=== PATIENT | female | born 1950 | race Caucasian/White ===

== ENCOUNTER 2017-09-10 10:24 | Emergency (ER) | payer MEDICARE, OTHER ==
[2017-09-10] MEDS ORDERED: NS 0.9% 1000 ML* 1,000 ML IV SCH (11:00)
[2017-09-10 11:35] LABS: ABS Basophils 0.1 10^3/ul (0-0.2); ABS Eosinophils 0 10^3/ul (0-0.6); ABS Lymphocytes 2.1 10^3/ul (1.0-4.8); ABS Monocytes 0.5 10^3/ul (0-0.8); ABS Neutrophils 4.3 10^3/ul (1.5-7.7); ABS Nucleated RBC 0 10^3/ul; Eosinophil % 0.2 % (0-6); Hematocrit 37 % (35-47); Hemoglobin 12.3 g/dl (12.0-16.0); Lymphocyte % 30.1 % (25-47); Mean Corpuscular HGB Conc 33 g/dl (31-36); Mean Corpuscular Hemoglobin 29 pg (27-31); Mean Corpuscular Volume 87 fL (80-97); Mean Platelet Volume 8 um3 (7.4-10.4); Nucleated Red Blood Cells % 0; Platelet Count 295 10^3/ul (150-450); Red Blood Count 4.27 10^6/ul (4.0-5.4); Red Cell Distribution Width 15 % (10.5-15)
[2017-09-10 11:52] LABS: INR 0.94 (0.77-1.02)
--- NOTE | 2017-09-10 11:53 | RAD ---
HISTORY: Epigastric pain COMPARISONS: September 26, 2012 VIEWS: 1: frontal portable view of the chest at 11:04 AM FINDINGS: LINES AND TUBES: None. CARDIOMEDIASTINAL SILHOUETTE: The cardiomediastinal silhouette is normal for portable technique. PLEURA: The costophrenic angles are sharp. No pleural abnormalities are noted. LUNG PARENCHYMA: The lungs are clear. ABDOMEN: The upper abdomen is clear. There is no subphrenic gas. Surgical clips are noted at the GE junction. BONES AND SOFT TISSUES: No bone or soft tissue abnormalities are noted. IMPRESSION: NO ACTIVE CARDIOPULMONARY DISEASE.
[2017-09-10 11:57] LABS: EGFR Non-African American 66.5 (>60)
[2017-09-10 13:10] VITALS: BP 115/80
--- NOTE | 2017-09-10 16:38 | ED ---
Dizziness - HPI Summary HPI Summary: Patient is an otherwise healthy 67-year-old female with a history of GERD who presents to the ED with chief complaint of dizziness after she took her nitroglycerin for the GERD symptoms this morning. She states she accidentally took too because they were stuck together and immediately felt dizzy, but denied any chest pain. She wanted to make sure nothing was going to get worse, and came to the ED. See note below: Pt states that she had one of her "episodes " of GERD and as instructed by her PMD she took nitroglycerin. Pt states that the bottle of nitroglycerin was new, and seh took 2 tabs instead of 1. She became dizzy and diaphoretic approx 5 minutes after taking the nitroglycerin. By the time EMS arrived pt states her sx's had "all but subsided". At thist time pt has no complaints of dizziness, chest or epigastric pain. She is alert and oriented x 4. She denies any fevers, sweats, chills. Denies any dizziness at baseline. She never has a history of such. She takes a nitroglycerin through her PCP which was found to be helpful for her GERD symptoms. The GERD symptoms present as an esophageal spasm. She has these episodes about 3 times a year and keeps the nitroglycerin on hand in case. She also takes a blood pressure medication lisinopril daily. Her blood pressure is usually normal and is controlled on these medications. - History Of Current Complaint Chief Complaint: EDAbdPain Stated Complaint: CHEST PAIN Time Seen by Provider: 09/10/17 12:26 Hx Obtained From: Patient Onset/Duration: Resolved Timing: Constant Severity Initially: Mild Severity Currently: Mild Character: Lightheaded, Weak, Dizzy Aggravating Factor(s): Nothing Alleviating Factor(s): Rest, Lying Down Associated Signs And Symptoms: Positive: Nausea - Risk Factors Cardiac Risk Factors: Hypertension CVA Risk Factor: Negative - Allergies/Home Medications Allergies/Adverse Reactions: Allergies Allergy/AdvReac Type Severity Reaction Status Date / Time Tetracyclines Allergy Mild Hives Verified 09/10/17 11:18 Home Medications: Home Medications Levothyroxine TAB* [Synthroid TAB*] 88 mcg PO DAILY 09/10/17 [History Confirmed 09/10/17] Lisinopril TAB* [Prinivil TAB*] 5 mg PO DAILY 09/10/17 [History Confirmed ] Psyllium Husk [Sm Fiber] 1,200 mg PO QAM 09/10/17 [History Confirmed 09/10/17] Vitamin B Complex CAP* [B Complex CAP*] 1 cap PO DAILY 09/10/17 [History Confirmed 09/10/17] PMH/Surg Hx/FS Hx/Imm Hx Previously Healthy: Yes Endocrine/Hematology History: Reports: Hx Thyroid Disease - Hypothyroidism Denies: Hx Anticoagulant Therapy - Was on Plavix briefly, Hx Diabetes Cardiovascular History: Reports: Hx Hypertension Denies: Hx Congestive Heart Failure, Hx Pacemaker/ICD Respiratory History: Denies: Hx Chronic Obstructive Pulmonary Disease (COPD) Comment Only: Hx Asthma - Distant past GI History: Reports: Hx Diverticulosis, Hx Gastroesophageal Reflux Disease, Hx Irritable Bowel, Hx Ulcer History: Denies: Hx Renal Disease Musculoskeletal History: Denies: Hx Osteoporosis Sensory History: Reports: Hx Contacts or Glasses Opthamlomology History: Reports: Hx Contacts or Glasses Neurological History: Denies: Hx Dementia, Hx Seizures Psychiatric History: Reports: Hx Depression Denies: Hx Substance Abuse - Surgical History Surgery Procedure, Year, and Place: , hysterectomy, failed repair of hiatal hernit, tonsillectomy, extra bone removed from left foot, cosmetic surgery eyes and face lift (5 years ago). - Immunization History Date of Tetanus Vaccine: <10 yrs Date of Influenza Vaccine: Fall 2011 Immunizations Up to Date: Yes Infectious Disease History: No Infectious Disease History: Denies: Hx Hepatitis, Hx Human Immunodeficiency Virus (HIV), Traveled Outside the [place] in Last 30 Days - Social History Occupation: Unemployed Lives: With Family Alcohol Use: Rare Hx Substance Use: No Substance Use Type: Reports: None Smoking Status (MU): Never Smoked Tobacco Review of Systems Constitutional: Negative Negative: Fever, Chills, Fatigue, Skin Diaphoresis Eyes: Negative Cardiovascular: Negative Genitourinary: Negative Positive: no symptoms reported, see HPI Musculoskeletal: Negative Neurological: Negative All Other Systems Reviewed And Are Negative: Yes Physical Exam Triage Information Reviewed: Yes Vital Signs On Initial Exam: Initial Vitals Temp Pulse Resp BP Pulse Ox 97.8 F 52 16 121/69 98 09/10/17 10:26 09/10/17 10:26 09/10/17 10:26 09/10/17 10:26 09/10/17 10:26 Vital Signs Reviewed: Yes Appearance: Positive: Well-Appearing, Well-Nourished Skin: Positive: Warm, Skin Color Reflects Adequate Perfusion Head/Face: Positive: Normal Head/Face Inspection Eyes: Positive: EOMI, VALENTIN, Conjunctiva Clear Neck: Positive: Supple, No Lymphadenopathy Respiratory/Lung Sounds: Positive: Clear to Auscultation, Breath Sounds Present Cardiovascular: Positive: Normal, RRR, Pulses are Symmetrical in both Upper and Lower Extremities Musculoskeletal: Positive: Normal, Strength/ROM Intact Neurological: Positive: Speech Normal Psychiatric: Positive: Normal AVPU Assessment: Alert Diagnostics - Vital Signs Vital Signs Temp Pulse Resp BP Pulse Ox 09/10/17 13:10 97.8 F 75 18 115/80 98 09/10/17 13:09 98 F 75 18 115/80 98 09/10/17 10:26 97.8 F 52 16 121/69 98 - Laboratory Lab Results: Lab Results 09/10/17 09/10/17 09/10/17 Range/Units 11:14 11:14 11:14 WBC 7.0 (3.5-10.8) 10^3/ul RBC 4.27 (4.0-5.4) 10^6/ul Hgb 12.3 (12.0-16.0) g/dl Hct 37 (35-47) % MCV 87 (80-97) fL MCH 29 (27-31) pg MCHC 33 (31-36) g/dl RDW 15 (10.5-15) % Plt Count 295 (150-450) 10^3/ul MPV 8 (7.4-10.4) um3 Neut % (Auto) 61.4 (38-83) % Lymph % (Auto) 30.1 (25-47) % Kershaw % (Auto) 7.6 H (0-7) % Eos % (Auto) 0.2 (0-6) % Baso % (Auto) 0.7 (0-2) % Absolute Neuts (auto) 4.3 (1.5-7.7) 10^3/ul Absolute Lymphs (auto) 2.1 (1.0-4.8) 10^3/ul Absolute Monos (auto) 0.5 (0-0.8) 10^3/ul Absolute Eos (auto) 0 (0-0.6) 10^3/ul Absolute Basos (auto) 0.1 (0-0.2) 10^3/ul Absolute Nucleated RBC 0 10^3/ul Nucleated RBC % 0 INR (Anticoag Therapy) 0.94 (0.77-1.02) APTT 27.3 (26.0-36.3) seconds Sodium (133-145) mmol/L Potassium (3.5-5.0) mmol/L Chloride (101-111) mmol/L Carbon Dioxide (22-32) mmol/L Anion Gap (2-11) mmol/L BUN (6-24) mg/dL Creatinine (0.51-0.95) mg/dL Est GFR ( Amer) (>60) Est GFR (Non-Af Amer) (>60) BUN/Creatinine Ratio (8-20) Glucose (70-100) mg/dL Lactic Acid (0.5-2.0) mmol/L Calcium (8.6-10.3) mg/dL Magnesium (1.9-2.7) mg/dL Total Bilirubin (0.2-1.0) mg/dL AST (13-39) U/L ALT (7-52) U/L Alkaline Phosphatase (34-104) U/L Troponin I (<0.04) ng/mL C-Reactive Protein (< 5.00) mg/L B-Natriuretic Peptide 46 ( - 100) pg/mL Total Protein (6.4-8.9) g/dL Albumin (3.2-5.2) g/dL Globulin (2-4) g/dL Albumin/Globulin Ratio (1-3) Lipase (11.0-82.0) U/L TSH (0.34-5.60) mcIU/mL 09/10/17 09/10/17 Range/Units 11:14 11:14 WBC (3.5-10.8) 10^3/ul RBC (4.0-5.4) 10^6/ul Hgb (12.0-16.0) g/dl Hct (35-47) % MCV (80-97) fL MCH (27-31) pg MCHC (31-36) g/dl RDW (10.5-15) % Plt Count (150-450) 10^3/ul MPV (7.4-10.4) um3 Neut % (Auto) (38-83) % Lymph % (Auto) (25-47) % Kershaw % (Auto) (0-7) % Eos % (Auto) (0-6) % Baso % (Auto) (0-2) % Absolute Neuts (auto) (1.5-7.7) 10^3/ul Absolute Lymphs (auto) (1.0-4.8) 10^3/ul Absolute Monos (auto) (0-0.8) 10^3/ul Absolute Eos (auto) (0-0.6) 10^3/ul Absolute Basos (auto) (0-0.2) 10^3/ul Absolute Nucleated RBC 10^3/ul Nucleated RBC % INR (Anticoag Therapy) (0.77-1.02) APTT (26.0-36.3) seconds Sodium 139 (133-145) mmol/L Potassium 4.2 (3.5-5.0) mmol/L Chloride 105 (101-111) mmol/L Carbon Dioxide 27 (22-32) mmol/L Anion Gap 7 (2-11) mmol/L BUN 21 (6-24) mg/dL Creatinine 0.85 (0.51-0.95) mg/dL Est GFR ( Amer) 85.5 (>60) Est GFR (Non-Af Amer) 66.5 (>60) BUN/Creatinine Ratio 24.7 H (8-20) Glucose 100 (70-100) mg/dL Lactic Acid 1.1 (0.5-2.0) mmol/L Calcium 9.3 (8.6-10.3) mg/dL Magnesium 2.0 (1.9-2.7) mg/dL Total Bilirubin 0.40 (0.2-1.0) mg/dL AST 23 (13-39) U/L ALT 22 (7-52) U/L Alkaline Phosphatase 64 (34-104) U/L Troponin I 0.00 (<0.04) ng/mL C-Reactive Protein 8.37 H (< 5.00) mg/L B-Natriuretic Peptide ( - 100) pg/mL Total Protein 6.7 (6.4-8.9) g/dL Albumin 4.2 (3.2-5.2) g/dL Globulin 2.5 (2-4) g/dL Albumin/Globulin Ratio 1.7 (1-3) Lipase 31 (11.0-82.0) U/L TSH 2.08 (0.34-5.60) mcIU/mL Result Diagrams: 09/10/17 11:14 09/10/17 11:14 Lab Statement: Any lab studies that have been ordered have been reviewed, and results considered in the medical decision making process. Dizzy Course/Dx - Course Course Of Treatment: During the course of treatment, BP is immediately taken and normal at 121/68. She states this is normal for her. The nitroglycerin were taken approximately 1 hour prior to arrival. She denies any abdominal pain , or any other symptoms at this time. She does not feel dizzy. She is ambulating well, denies any neuro symptoms. I have discussed that this is a manifestation of the nitroglycerin, and she agrees. She reiterates that she just wanted to get checked out to make sure nothing else was going on. Labs were obtained prior to the provider evaluating the patient and all labs were unremarkable. EKG sinus bradycardia. Chest x-ray obtained and shows no active cardiopulmonary disease. She is okay for discharge at this time. - Diagnoses Provider Diagnoses: Medication reaction Discharge - Discharge Plan Condition: Stable Disposition: HOME Referrals: Irma Whitehead MD [Primary Care Provider] - Additional Instructions: Please follow-up with your primary care physician If he develop any worsening symptoms, return to the ED immediately Get up slowly from a sitting or lying position Continue with her home medications as prescribed
== END 2017-09-10 13:13 | disposition home or self-care (01) ==
LOC: ED 10:24
DX: T46.3X5A Adverse effect of coronary vasodilators, initial encounter (principal); R42 Dizziness and giddiness; R53.1 Weakness; R11.0 Nausea; Y92.9 Unspecified place or not applicable
CPT/HCPCS: 36415; 71045; 80053; 83605; 83690; 83735; 83880; 84443; 84484; 85025; 85610; 85730; 86140; 93005; 99282

== ENCOUNTER 2019-09-15 06:56 | Emergency (ER) | payer MEDICARE, OTHER ==
[2019-09-15] MEDS ORDERED: Morphine 4 MG/ML VIAL (1 ml) 4 MG/ML VIAL IV ONE (07:15)
[2019-09-15] MEDS ORDERED: NS 0.9% 1000 ML** 1,000 ML IV ONE (07:15)
[2019-09-15] MEDS ORDERED: Ondansetron INJ* 2 MG/ML VIAL IV ONE (07:15)
--- NOTE | 2019-09-15 07:20 | ED ---
Abdominal Pain/Female - HPI Summary HPI Summary: Patient is a 59-year-old female who presents emergency department for lower abdominal pain 4 days. Patient notes history of diverticulitis. Patient states pain feels similar today but is more localized to the right lower quadrant. She also notes suprapubic pain, nausea and decreased appetite. Patient states she had a fever this morning as well. Denies associated symptoms of chest pain, shortness of breath, blood in stools. Past medical history of hypertension, IBS. Symptoms are moderate in severity. No current modifying factors. Patient does note recent constipation. - History of Current Complaint Chief Complaint: EDAbdPain Stated Complaint: ABD PAIN PER PT Time Seen by Provider: 09/15/19 07:06 Hx Obtained From: Patient Pain Intensity: 8 Allergies/Adverse Reactions: Allergies Allergy/AdvReac Type Severity Reaction Status Date / Time Tetracyclines Allergy Mild Hives Verified 09/10/17 11:18 Home Medications: Home Medications Atenolol TAB* [Tenormin TAB* 50 MG] 50 mg PO DAILY 09/26/12 [History Confirmed 09/10/17] Cyclobenzaprine TAB* [Flexeril 10 MG TAB*] 10 mg PO BEDTIME PRN 09/26/12 [ History Confirmed 09/10/17] Esomeprazole(NF) [Nexium(NF)] 40 mg PO DAILY 09/26/12 [History Confirmed ] Venlafaxine EXT RELEASE CAP* [Effexor Xr CAP*] 225 mg PO DAILY 09/26/12 [ History Confirmed 09/10/17] Levothyroxine TAB* [Synthroid TAB*] 88 mcg PO DAILY 09/10/17 [History Confirmed 09/10/17] Lisinopril TAB* [Prinivil TAB*] 5 mg PO DAILY 09/10/17 [History Confirmed ] Psyllium Husk [Sm Fiber] 1,200 mg PO QAM 09/10/17 [History Confirmed 09/10/17] Vitamin B Complex CAP* [B Complex CAP*] 1 cap PO DAILY 09/10/17 [History Confirmed 09/10/17] Ciprofloxacin TAB* [Cipro 500 MG TAB*] 500 mg PO BID #20 tab 09/15/19 [Rx] Ondansetron TAB* [Zofran 4 MG Tab*] 4 mg PO Q6H PRN #20 tab 09/15/19 [Rx] metroNIDAZOLE [Flagyl 500 MG TAB] 500 mg PO TID #30 tab 09/15/19 [Rx] PMH/Surg Hx/FS Hx/Imm Hx Previously Healthy: Yes Endocrine/Hematology History: Reports: Hx Thyroid Disease - Hypothyroidism Denies: Hx Anticoagulant Therapy - Was on Plavix briefly, Hx Diabetes Cardiovascular History: Reports: Hx Hypertension Denies: Hx Congestive Heart Failure, Hx Pacemaker/ICD Respiratory History: Denies: Hx Chronic Obstructive Pulmonary Disease (COPD) Comment Only: Hx Asthma - Distant past GI History: Reports: Hx Diverticulosis, Hx Gastroesophageal Reflux Disease, Hx Irritable Bowel, Hx Ulcer History: Denies: Hx Renal Disease Musculoskeletal History: Denies: Hx Osteoporosis Sensory History: Reports: Hx Contacts or Glasses Opthamlomology History: Reports: Hx Contacts or Glasses Neurological History: Denies: Hx Dementia, Hx Seizures Psychiatric History: Reports: Hx Depression Denies: Hx Substance Abuse - Surgical History Surgery Procedure, Year, and Place: , hysterectomy, failed repair of hiatal hernit, tonsillectomy, extra bone removed from left foot, cosmetic surgery eyes and face lift (5 years ago). - Immunization History Date of Tetanus Vaccine: <10 yrs Date of Influenza Vaccine: Fall 2011 Infectious Disease History: No Infectious Disease History: Denies: Hx Hepatitis, Hx Human Immunodeficiency Virus (HIV), Traveled Outside the [place] in Last 30 Days - Family History Known Family History: Positive: Non-Contributory - Social History Occupation: Retired Lives: With Family Alcohol Use: Rare Hx Substance Use: No Substance Use Type: Reports: None Smoking Status (MU): Never Smoked Tobacco Review of Systems Positive: Fever, Chills Cardiovascular: Negative Negative: Palpitations, Chest Pain Respiratory: Negative Negative: Shortness Of Breath, Cough Positive: Abdominal Pain, Nausea. Negative: Vomiting, Diarrhea Positive: dysuria Neurological/Mental Status: Negative All Other Systems Reviewed And Are Negative: Yes Physical Exam Triage Information Reviewed: Yes Vital Signs On Initial Exam: Initial Vitals Temp Pulse Resp BP Pulse Ox 98.2 F 70 20 150/82 97 09/15/19 06:58 09/15/19 06:58 09/15/19 06:58 09/15/19 06:58 09/15/19 06:58 Vital Signs Reviewed: Yes Appearance: Positive: Well-Appearing - Pt. lying in bed with legs pulled up. Appears uncomfortable but nontoxic. Skin: Positive: Warm, Dry Head/Face: Positive: Normal Head/Face Inspection Eyes: Positive: Normal, EOMI Neck: Positive: Supple Respiratory/Lung Sounds: Positive: Clear to Auscultation, Breath Sounds Present Cardiovascular: Positive: Normal, RRR Abdomen Description: Positive: CVA Tenderness (L), Other: - Abd. is soft with marked tenderness to RLQ and LLQ with guarding. No rigidity. Musculoskeletal: Positive: Normal, Strength/ROM Intact Neurological: Positive: Normal, CN Intact II-III Psychiatric: Positive: Affect/Mood Appropriate Procedures - Sedation Patient Received Moderate/Deep Sedation with Procedure: No Diagnostics - Vital Signs Vital Signs Temp Pulse Resp BP Pulse Ox 09/15/19 06:58 98.2 F 70 20 150/82 97 - Laboratory Result Diagrams: 09/15/19 07:15 09/15/19 07:15 Lab Statement: Any lab studies that have been ordered have been reviewed, and results considered in the medical decision making process. Abdominal Pain Fem Course/Dx - Course Course Of Treatment: Patient with diffuse lower abdominal pain. Afebrile and nontoxic. Patient given IV fluids and pain medication. ECG done at 61bpm, normal axis, no STEMI. CT abd./pelvis per radiology: IMPRESSION: Hiatal hernia. Diverticulitis of the sigmoid colon without evidence of. pericardial diverticular abscess. Hepatic steatosis. Labs unremarkable other than elevated CRP of 65. Reexamination patient feeling better. She is tolerating by mouth fluids. We'll discharge home with Cipro and Flagyl. Clear liquid diet x 3 days. Close follow-up with PCP and return to the ER for increased pain , fever, vomiting or if concerned. Patient understands and agrees with plan. - Diagnoses Differential Diagnosis: Positive: Appendicitis, Bowel Obstruction, Constipation , Diverticulitis Provider Diagnoses: Diverticulitis, Abdominal pain Discharge ED - Sign-Out/Discharge Documenting (check all that apply): Patient Departure - Discharge Plan Condition: Improved Disposition: HOME Prescriptions: Ciprofloxacin TAB* [Cipro 500 MG TAB*] 500 mg PO BID #20 tab metroNIDAZOLE [Flagyl 500 MG TAB] 500 mg PO TID #30 tab Ondansetron TAB* [Zofran 4 MG Tab*] 4 mg PO Q6H PRN #20 tab PRN Reason: Nausea Patient Education Materials: Diverticulitis (ED), Diverticulitis Diet (ED) Referrals: Irma Whitehead MD [Medical Doctor] - Additional Instructions: Follow up with PCP on Thursday for recheck Take medication as directed Clear liquid diet x 3 days Return to ER for increased pain, vomiting, high fever or if concerned - Billing Disposition and Condition Condition: IMPROVED Disposition: Home - Attestation Statements Provider Attestation: pt seen by midlevel provider independently, based on their assessment, it was not necessary to present the case to me but I was available for consultation. I did not form a physician-patient relationship with the patient. The chart however, has been reviewed. am signing this note strictly in an administrative capacity.
[2019-09-15 07:39] LABS: Albumin 4.2 g/dL (3.2-5.2); Albumin/Globulin Ratio 1.6 (1-3); BUN/Creatinine Ratio 16.5 (8-20); C Reactive Protein 65.19 mg/L (<8.01); Calcium 9.4 mg/dL (8.6-10.3); EGFR Non-African American 61.1 (>60); Globulin 2.7 g/dL (2-4); Potassium 4.1 mmol/L (3.5-5.0); Total Bilirubin 0.5 mg/dL (0.2-1.0); Total Protein 6.9 g/dL (6.4-8.9)
[2019-09-15 07:40] LABS: ABS Lymphocytes 1.9 10^3/ul (1.0-4.8); ABS Monocytes 0.9 10^3/ul (0-0.8); ABS Neutrophils 7.7 10^3/ul (1.5-7.7); Eosinophil % 0.4 %; Hematocrit 38 % (35-47); Hemoglobin 12.7 g/dL (12.0-16.0); Mean Corpuscular HGB Conc 33 g/dL (31-36); Mean Corpuscular Hemoglobin 30 pg (27-31); Mean Corpuscular Volume 88 fL (80-97); Mean Platelet Volume 8.5 fL (7.4-10.4); Platelet Count 323 10^3/uL (150-450); Red Blood Count 4.32 10^6 /uL (3.70-4.87); Red Cell Distribution Width 14 % (10-15); White Blood Count 10.5 10^3/uL (3.5-10.8)
[2019-09-15] MEDS ORDERED: Iohexol 300* (CONTRAST) 10 ML SDV IV ONE (08:12)
[2019-09-15 09:36] VITALS: BP 155/76
== END 2019-09-15 09:35 | disposition home or self-care (01) ==
LOC: ED 06:56
DX: K57.32 Diverticulitis of large intestine without perforation or abscess without bleeding (principal); K44.9 Diaphragmatic hernia without obstruction or gangrene; K76.0 Fatty (change of) liver, not elsewhere classified; R10.30 Lower abdominal pain, unspecified; E03.9 Hypothyroidism, unspecified; I10 Essential (primary) hypertension; K21.9 Gastro-esophageal reflux disease without esophagitis; F32.9 Major depressive disorder, single episode, unspecified; Z79.899 Other long term (current) drug therapy; Z88.1 Allergy status to other antibiotic agents
CPT/HCPCS: 36415; 74177; 80053; 83605; 83690; 84484; 85025; 86140; 93005; 96361; 96374; 96375; 99282; J2270; J2405; Q9967